=== PATIENT | male | born 1970 | race Caucasian/White ===

== ENCOUNTER 2018-12-22 22:09 | Emergency (ER) | payer SELFPAY ==
[~2018-12-22] VITALS: Ht 182.9 cm; Wt 75.4 kg
[~2018-12-22 22:09] MED LIST: ATORVASTATIN CA10 MG PO; BIPOLAR MED; COMBIVENT RESPIMAT IN; CRESTOR5 M1 PO; LEVOTHYROXIN50 MC1 PO; LISINOPRIL20 M1 PO; NAPROSYN500 MG PO; OMEPRAZOLE20 MG PO; TEGRETOL200 MG PO; ULTRAM50 M1 PO; VENTOLIN HF1 IN
[2018-12-22] MEDS ORDERED: VOLTAREN - GENE75 MG PO (23:42)
[2018-12-23 00:07] VITALS: BP 130/70
== END 2018-12-23 00:05 | disposition home or self-care (01) | DRG 563 ==
LOC: ED 22:09
DX: S93.401A Sprain of unspecified ligament of right ankle, initial encounter (principal); W17.2XXA Fall into hole, initial encounter; X50.1XXA Overexertion from prolonged static or awkward postures, initial encounter; Y93.01 Activity, walking, marching and hiking; Y92.414 Local residential or business street as the place of occurrence of the external cause

== ENCOUNTER 2019-01-30 12:21 | Emergency (ER) | payer SELFPAY ==
[~2019-01-30] VITALS: Ht 182.9 cm; Wt 79.5 kg
[~2019-01-30 12:21] MED LIST changes: +VOLTAREN - GENE75 MG PO
[2019-01-30 14:11] VITALS: BP 124/87
== END 2019-01-30 14:17 | disposition home or self-care (01) | DRG 204 ==
LOC: ED 12:21
DX: R07.81 Pleurodynia (principal); I10 Essential (primary) hypertension; J44.9 Chronic obstructive pulmonary disease, unspecified; I25.2 Old myocardial infarction; F17.220 Nicotine dependence, chewing tobacco, uncomplicated; F17.210 Nicotine dependence, cigarettes, uncomplicated; Z86.73 Personal history of transient ischemic attack (TIA), and cerebral infarction without residual deficits

== ENCOUNTER 2020-12-31 | Emergency (ER) | payer OTHER ==
[~2020-12-31] MED LIST changes: +OFLOXACIN0.3 % OU
[2020-12-31] MEDS ORDERED: GENTAK0.32 OD (15:39)
== END 2020-12-31 15:58 | disposition home or self-care (01) | DRG 115 ==
PROC: 08C8XZZ Extirpation of Matter from Right Cornea, External Approach (ICD-10-PCS; principal; 2020-12-31)
DX: T15.01XA Foreign body in cornea, right eye, initial encounter (principal); I10 Essential (primary) hypertension; J44.9 Chronic obstructive pulmonary disease, unspecified; E78.00 Pure hypercholesterolemia, unspecified; F17.210 Nicotine dependence, cigarettes, uncomplicated; I25.2 Old myocardial infarction; X58.XXXA Exposure to other specified factors, initial encounter; Y93.89 Activity, other specified; Z86.73 Personal history of transient ischemic attack (TIA), and cerebral infarction without residual deficits

== ENCOUNTER 2021-03-26 11:27 | Emergency (ER) | payer SELFPAY ==
[~2021-03-26] VITALS: Ht 182.9 cm; Wt 79.5 kg
[~2021-03-26 11:27] MED LIST changes: +GENTAK0.32 OD
[2021-03-26] MEDS ORDERED: OFLOXACIN0.3 % OD (13:05)
[2021-03-26 13:18] VITALS: BP 148/88
== END 2021-03-26 13:18 | disposition home or self-care (01) | DRG 115 ==
LOC: ED 11:27
PROC: 08C8XZZ Extirpation of Matter from Right Cornea, External Approach (ICD-10-PCS; principal; 2021-03-26)
DX: T15.01XA Foreign body in cornea, right eye, initial encounter (principal); I10 Essential (primary) hypertension; J44.9 Chronic obstructive pulmonary disease, unspecified; E78.5 Hyperlipidemia, unspecified; F17.200 Nicotine dependence, unspecified, uncomplicated; I25.2 Old myocardial infarction; X58.XXXA Exposure to other specified factors, initial encounter; Y99.0 Civilian activity done for income or pay; Z86.73 Personal history of transient ischemic attack (TIA), and cerebral infarction without residual deficits